=== PATIENT | female | born 1965 | race Caucasian/White ===

== ENCOUNTER → 2017-05-03 | Outpatient (CLI) | payer OTHER | END | disposition home or self-care (01) | LOC: C.LAB 07:04 | PROVIDERS: ATTEND Nurse Practitioner Family | DX: L52 Erythema nodosum (principal) ==

== ENCOUNTER → 2017-05-07 | Outpatient (CLI) | payer OTHER ==
--- NOTE | 2017-05-07 14:05 | DIAGNOSTIC IMAGING REPORT ---
CHEST 2 VIEWS ROUTINE HISTORY: 51 years-old Female ERYTHEMA NODOSUM COMPARISON: None available TECHNIQUE: PA and lateral views of the chest FINDINGS: Cardiomediastinal and hilar silhouettes are within normal limits. There is no pneumothorax, pleural effusion, focal airspace consolidation or overt pulmonary edema. Bones of the chest appear grossly intact. IMPRESSION: No acute process. The above report was generated using voice recognition software. It may contain grammatical, syntax or spelling errors. Electronically signed by: Mane Thayer M.D. 05/07/2017 2:03 PM Dictated Date/Time: 05/07/2017 2:02 PM
== END | disposition home or self-care (01) ==
LOC: C.RAD 13:32
PROVIDERS: ATTEND Nurse Practitioner Family
DX: L52 Erythema nodosum (principal)

== ENCOUNTER → 2017-05-23 | Outpatient (CLI) | payer OTHER | END | disposition home or self-care (01) | LOC: C.LAB 15:36 | PROVIDERS: ATTEND Family Medicine | DX: L52 Erythema nodosum (principal) ==

== ENCOUNTER → 2017-06-28 | Outpatient (CLI) | payer OTHER ==
--- NOTE | 2017-06-28 07:57 | DIAGNOSTIC IMAGING REPORT ---
RIGHT FOOT 3 VIEWS HISTORY: R21 [id number] Erythema nodosum R60.0 Lower leg [id number] COMPARISON: None. FINDINGS: There is no fracture or dislocation. Mild soft tissue swelling at the ankle. Posterior calcaneal spur. Mild degenerative changes at the intertarsal joints and first and second MTP joints. No erosions identified. No radiopaque foreign bodies. IMPRESSION: 1. Mild osteoarthritis within the right foot as described above. 2. Mild soft tissue swelling at the ankle. 3. No erosions identified. Electronically signed by: Jose Raul Ritchie M.D. 06/28/2017 7:56 AM Dictated Date/Time: 06/28/2017 7:53 AM
[2017-06-28 09:35] LABS: BASO % 0.4 %; BASO ABS # 0.02 K/uL (0-0.2); EOS % 2.9 %; EOS ABS # 0.14 K/uL (0-0.5); HEMATOCRIT 38.9 % (37-47); HEMOGLOBIN 12.8 g/dL (12.0-16.0); IG# 0.01 K/uL (0.00-0.02); LYMPH % 26.9 %; LYMPH ABS # 1.31 K/uL (1.2-3.4); MEAN CELL VOLUME 83.5 fL (80-100); MEAN CORPUSCULAR HEMOGLOBIN 27.5 pg (25-34); MEAN CORPUSCULAR HGB CONC 32.9 g/dl (32-36); MEAN PLATELET VOLUME 9.3 fL (7.4-10.4); MONO % 10.5 %; MONO ABS # 0.51 K/uL (0.11-0.59); NEUT % 59.1 %; NEUT ABS # 2.88 K/uL (1.4-6.5); PLATELET COUNT 326 K/uL (130-400); RED CELL DISTRIBUTION WIDTH CV 14.9 % (11.5-14.5); RED CELL DISTRIBUTION WIDTH SD 45.3 fL (36.4-46.3); WHITE BLOOD COUNT 4.87 K/uL (4.8-10.8)
[2017-06-28 09:50] LABS: ALBUMIN 3.5 gm/dl (3.4-5.0); ALT/SGPT 37 U/L (12-78); CREATININE 0.81 mg/dl (0.60-1.20); GLUCOSE,FASTING 91 mg/dl (70-99)
[2017-06-28 10:01] LABS: ALKALINE PHOSPHATASE 88 U/L (45-117); AST/SGOT 21 U/L (15-37); TOTAL PROTEIN 8.1 gm/dl (6.4-8.2)
[2017-07-03 02:29] LABS: ANA SCREEN TC 249X NEGATIVE (NEGATIVE); ANTI-SS-A <1.0 NEG AI (<1.0 NEG); ANTI-SS-B <1.0 NEG AI (<1.0 NEG); COMPLEMENT C3 TC 44859W 157 MG/DL (90-180); COMPLEMENT C4 TC 44982E 27 MG/DL (16-47); PARVOVIRUS IgM INDEX 0.2 (<0.9)
== END | disposition home or self-care (01) ==
LOC: C.LAB 06:38
PROVIDERS: ATTEND Internal Medicine Rheumatology
DX: L52 Erythema nodosum (principal); R21 Rash and other nonspecific skin eruption; R60.0 Localized edema; M25.50 Pain in unspecified joint

== ENCOUNTER → 2017-07-01 | Outpatient (CLI) | payer OTHER ==
[2017-07-02 14:05] LABS: MICROSOMAL AB 1 IU/ML (<9)
== END | disposition home or self-care (01) ==
LOC: C.LAB 08:02
PROVIDERS: ATTEND Dermatology
DX: R60.0 Localized edema (principal); R21 Rash and other nonspecific skin eruption

== ENCOUNTER → 2017-08-14 | Outpatient (CLI) | payer OTHER | END | disposition home or self-care (01) | LOC: C.LAB 15:06 | PROVIDERS: ATTEND Nurse Practitioner Family | DX: R94.6 Abnormal results of thyroid function studies (principal) ==